=== PATIENT | female | born 1960 | race American Indian/Alaskan Native ===

== ENCOUNTER 2017-07-12 08:50 | Emergency (ER) | payer OTHER ==
[2017-07-12 09:00] VITALS: TEMP 97.4
[2017-07-12] MEDS ORDERED: Naproxen 550 mg Tab PO STA (09:22)
[2017-07-12] MEDS ORDERED: Naproxen 550 mg Tab PO ONE (09:25)
--- NOTE | 2017-07-12 10:36 | C.PDOC ---
History Of Present Illness 56 year old female presents to the ED with complaints of sore throat for approximately 2-3 days. Patient reports multiple people are work currently have strep throat and she is concerned she may have it as well. Patient denies cough , fever, chest pain, shortness of breath. Time Seen by Provider: 07/12/17 09:04 Chief Complaint (Nursing): ENT Problem History Per: Patient History/Exam Limitations: None Onset/Duration Of Symptoms: Days (2-3 days ) Current Symptoms Are (Timing): Still Present Quality (Mouth/Throat): Other (sore throat ) Severity: Mild Recent Aspirin Use: No Past Medical History Reviewed: Historical Data, Nursing Documentation, Vital Signs Vital Signs: Last Vital Signs Temp 97.4 F L 07/12/17 08:57 Pulse 75 07/12/17 10:54 Resp 19 07/12/17 10:54 BP 150/70 07/12/17 10:54 Pulse Ox 99 07/12/17 11:09 - Medical History PMH: HIV, HTN, Hyperthyroidism, Hypothyroidism, Pneumonia Surgical History: Tonsillectomy Family History: States: Diabetes - Social History Hx Tobacco Use: No Hx Alcohol Use: Yes Hx Substance Use: No - Immunization History Hx Tetanus Toxoid Vaccination: No Hx Influenza Vaccination: No Hx Pneumococcal Vaccination: No Review Of Systems Except As Marked, All Systems Reviewed And Found Negative. Constitutional: Negative for: Fever, Chills ENT: Positive for: Other (sore throat ) Cardiovascular: Negative for: Chest Pain, Palpitations Respiratory: Negative for: Cough, Shortness of Breath Gastrointestinal: Negative for: Nausea, Vomiting, Abdominal Pain, Diarrhea Neurological: Negative for: Headache Physical Exam - Physical Exam Appears: Well, Non-toxic, No Acute Distress, Other (appears comfortable ) Skin: Warm, Dry, No Rash Head: Normacephalic Eye(s): bilateral: Normal Inspection Nose: Normal Oral Mucosa: Moist Throat: Erythema (pharyngeal ), No Exudate, No Drooling, Other (no tonsillar swelling, uvula midline and normal in appearance) Chest: Symmetrical Cardiovascular: Rhythm Regular Respiratory: Normal Breath Sounds, No Rales, No Rhonchi, No Stridor, No Wheezing , Other (speaking in complete sentences. ) Neurological/Psych: Oriented x3 ED Course And Treatment O2 Sat by Pulse Oximetry: 99 (RA) Pulse Ox Interpretation: Normal Progress Note: Patient given PO Naprosyn for pain. Strep swab ordered and reviewed. Reevaluation Time: 10:40 Reassessment Condition: Improved (Patient reassessed, is currently resting comfortably and feeling better. Strep swab (-). Patient given Rxs for Naprosyn and Chloraseptic and instructed to follow up with PMD/clinic in 1-2 days. She understands she should return to ED if symptoms worsen.) Disposition Counseled Patient/Family Regarding: Studies Performed, Diagnosis, Need For Followup, Rx Given - Disposition Referrals: Agustina Robledo MD [Medical Doctor] - Disposition: HOME/ ROUTINE Disposition Time: 10:40 Condition: STABLE Additional Instructions: FOLLOW UP WITH YOUR DOCTOR IN 1-2 DAYS \ USE MEDICATIONS DIRECTED RETURN TO EMERGENCY ROOM IF SYMPTOMS WORSEN Prescriptions: Naproxen 375 mg PO BID PRN #20 tablet PRN Reason: pain Phenol/Glycerin [Chloraseptic Max Aline] 1 spray MM Q6 PRN #1 spray PRN Reason: THROAT PAIN Instructions: Pharyngitis (ED) Forms: [employer] (Faroese), Work Excuse Print Language: SOUTH AFRICAN - POA Present On Arrival: None - Clinical Impression Clinical Impression: Acute viral pharyngitis - Scribe Statement The provider has reviewed the documentation as recorded by the Scribe Irina Michel All medical record entries made by the Dominickibbrant were at my direction and personally dictated by me. I have reviewed the chart and agree that the record accurately reflects my personal performance of the history, physical exam, medical decision making, and the department course for this patient. I have also personally directed, reviewed, and agree with the discharge instructions and disposition.
[2017-07-12 10:55] VITALS: BP 150/70; PULSE 75; RESP 19
[2017-07-12 10:56] VITALS: O2SAT 99
== END 2017-07-12 10:55 | disposition home or self-care (01) ==
LOC: C.ER 08:50
DX: J02.8 Acute pharyngitis due to other specified organisms (principal)

== ENCOUNTER 2017-11-01 06:37 | Emergency (ER) | payer SELFPAY ==
[2017-11-01 06:47] VITALS: BP 119/77; PULSE 99; RESP 20; TEMP 97.8; O2SAT 100
--- NOTE | 2017-11-01 07:40 | C.PDOC ---
History Of Present Illness 57 y/o F c PMHx hypothyroidism, HTN p/w nonbloody vomiting x 3 days. Nonbloody diarrhea began last night. Able to tolerate water and beatriz lobito, no solids food. Reports fever initially, now resolved. Denies any current fever, chills, chest pain, dyspnea, abdominal pain, nausea, vomiting. No recent travel. Time Seen by Provider: 11/01/17 07:10 Chief Complaint (Nursing): Abdominal Pain Past Medical History Vital Signs: Last Vital Signs Temp 97.8 F 11/01/17 06:43 Pulse 99 H 11/01/17 06:43 Resp 20 11/01/17 06:43 BP 119/77 11/01/17 06:43 Pulse Ox 100 11/01/17 06:43 - Medical History PMH: HIV, HTN, Hyperthyroidism, Hypothyroidism, Pneumonia Denies: Chronic Kidney Disease Surgical History: Tonsillectomy Family History: States: Diabetes - Social History Hx Tobacco Use: No Hx Alcohol Use: No Hx Substance Use: No - Immunization History Hx Tetanus Toxoid Vaccination: No Hx Influenza Vaccination: No Hx Pneumococcal Vaccination: No Review Of Systems Except As Marked, All Systems Reviewed And Found Negative. Cardiovascular: Negative for: Chest Pain Respiratory: Negative for: Shortness of Breath Physical Exam - Physical Exam Additional Physical Exam Comments: Gen: NAD Head: NC Eyes: Not sunken ENT: MMM Neck: Supple CV: Regular rate. Cap refill < 2 seconds. Resp: CTA b/l Abd: Soft, NT, ND Extr: No swelling Neuro: No focal deficit, alert. ED Course And Treatment O2 Sat by Pulse Oximetry: 100 Medical Decision Making Medical Decision Making: Impression: 57 y/o F p/w vomiting and diarrhea without abdominal pain, likely gastroenteritis. Plan: Zofran PRN, continue PO fluids. F/u primary care, instructed to return to ED for worsening pain, intractible vomiting, dyspnea. Disposition - Disposition Disposition: HOME/ ROUTINE Disposition Time: 07:40 Condition: STABLE Prescriptions: Ondansetron ODT [Zofran ODT] 4 mg PO Q8 #12 odt Instructions: Gastroenteritis (ED) Forms: [facility] (Greenlandic), Work Excuse - Clinical Impression Clinical Impression: Vomiting, Diarrhea
== END 2017-11-01 07:46 | disposition home or self-care (01) ==
LOC: C.ER 06:37
DX: R11.10 Vomiting, unspecified (principal); R19.7 Diarrhea, unspecified